=== PATIENT | female | born 1935 | race Caucasian/White ===

== ENCOUNTER → 2016-10-27 16:13 | Emergency (ER) | payer MEDICARE ==
--- NOTE | 2016-10-27 16:53 | RAD ---
INDICATION: Head injury. COMPARISON: There are no prior studies available for comparison. TECHNIQUE: Contiguous axial sections of the brain were obtained from the skull base to the vertex without contrast. FINDINGS: The ventricles, cisterns and sulci are within normal limits. 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 No other focal abnormalities or mass effect are seen. There is no evidence for hemorrhage. Soft tissue swelling is noted in the scalp posterior to the parietal and occipital bones. No fracture is seen. The visualized portion of the paranasal sinuses and mastoid air cells appear clear. IMPRESSION: 1. NO EVIDENCE FOR ACUTE INTRACRANIAL ABNORMALITY. 2. 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
--- NOTE | 2016-10-27 17:07 | ED ---
Head Injury - HPI Summary HPI Summary: Patient sat down in a chair outside and it tipped over backwards. She hit her head on the patio. She denies LOC, neck pain, vomiting, HERRERA, or amnesia. She is not a blood thinner. She has a "goose egg" on her head but does not think she cut her head. - History Of Current Complaint Chief Complaint: EDHeadInjury Stated Complaint: FALL Time Seen by Provider: 10/27/16 16:18 Hx Obtained From: Patient Mechanism Of Injury: Fall From Height Of: - 2 feet Onset/Duration: Started Minutes Ago, Traumatic Onset of Pain: Immediate Severity Currently: None Severity Initially: Mild Pain Intensity: 0 Location of Head Injury: Occipital Character: Dull Associated Signs And Symptoms: Swelling - mild, Bruising - Allergies/Home Medications Allergies/Adverse Reactions: Allergies Allergy/AdvReac Type Severity Reaction Status Date / Time Peanut-containing Drug Allergy Nausea Verified 10/27/16 16:31 Products Penicillins Allergy Itching Verified 10/27/16 16:31 Grape jam and jelly Allergy Nausea Uncoded 10/27/16 16:31 PMH/Surg Hx/FS Hx/Imm Hx Previously Healthy: Yes Infectious Disease History: No Infectious Disease History: Denies: Traveled Outside the [place] in Last 30 Days - Family History Known Family History: Positive: None - Social History Occupation: Retired Lives: With Family Alcohol Use: Rare Substance Use Type: Reports: None Smoking Status (MU): Never Smoked Tobacco Review of Systems Negative: Photophobia, Blurred Vision Positive: Bruising - with a mild bump to posterior scalp All Other Systems Reviewed And Are Negative: Yes Physical Exam Triage Information Reviewed: Yes Vital Signs On Initial Exam: Initial Vitals Temp Pulse Resp BP Pulse Ox 98.8 F 83 18 153/96 95 10/27/16 16:26 10/27/16 16:26 10/27/16 16:26 10/27/16 16:26 10/27/16 16:26 Vital Signs Reviewed: Yes Appearance: Positive: Well-Appearing, No Pain Distress, Well-Nourished Skin: Positive: Warm, Skin Color Reflects Adequate Perfusion, Dry, Soft Head/Face: Positive: Scalp - mild golf ball size hematoma with ecchymosis on posterior parietal scalp Eyes: Positive: EOMI, OBDULIO, Conjunctiva Clear ENT: Positive: Hearing grossly normal, Pharynx normal, TMs normal Neck: Positive: Supple, Nontender Respiratory/Lung Sounds: Positive: Clear to Auscultation, Breath Sounds Present Cardiovascular: Positive: RRR Musculoskeletal: Negative: Edema Left, Edema Right Neurological: Positive: Sensory/Motor Intact, Alert, Oriented to Person Place, Time, CN Intact II-III, NV Bundle Intact Distally, Normal Gait Psychiatric: Positive: Affect/Mood Appropriate AVPU Assessment: Alert Diagnostics - Vital Signs Vital Signs Temp Pulse Resp BP Pulse Ox 10/27/16 16:26 98.8 F 83 18 153/96 95 - Laboratory Lab Statement: Any lab studies that have been ordered have been reviewed, and results considered in the medical decision making process. - CT No standard instances CT Interpretation: No Acute Changes CT Interpretation Completed By: Radiologist Head Injury Course/Dx - Diagnoses Differential Diagnosis/HQI/PQRI: Cerebral Contusion, Cervical Sprain, Concussion With LOC, Contusion, Hematoma, Laceration, Skull Fracture Provider Diagnoses: Scalp contusion, Head injury Discharge - Discharge Plan Condition: Stable Disposition: HOME Patient Education Materials: Head Injury (ED) Referrals: Hussein Godwin MD [Primary Care Provider] - Additional Instructions: Please follow-up with your primary care provider in 2-3 days if your symptoms persist. Use Tylenol for pain. Return to the emergency department if symptoms worsen.
[2016-10-27 17:35] VITALS: BP 196/78
== END | disposition home or self-care (01) ==
LOC: ED 16:13
DX: S00.03XA Contusion of scalp, initial encounter (principal); S09.90XA Unspecified injury of head, initial encounter; R60.9 Edema, unspecified; W01.0XXA Fall on same level from slipping, tripping and stumbling without subsequent striking against object, initial encounter; Y93.9 Activity, unspecified; Y92.9 Unspecified place or not applicable
CPT/HCPCS: 70450; 99282

== ENCOUNTER 2017-02-06 10:40 | Day surgery (SDC) | payer MEDICARE ==
[~2017-02-06 10:40] MED LIST: Acetaminophen TAB* 325 MG PO PRN; Buffered Lidocaine 0.9% SYRIN* 5 ML/SYR SYRINGE INTRADERM ONE
[2017-02-06] MEDS ORDERED: fentaNYL* 50 MCG/ML 2 ML VIAL (100 MCG VIAL) ONE (11:35)
[2017-02-06] MEDS ORDERED: Midazolam* 1 MG/ML 2 ML VIAL (2 MG) ONE (11:35)
[2017-02-06 12:52] VITALS: BP 129/72
[2017-02-06] MEDS ORDERED: Phenylephrine 2.5% OPTH.SOL* 2 ML BTL ONE (13:22)
[2017-02-06] MEDS ORDERED: Tropicamide 1% OPTH.SOL* BTL ONE (13:22)
[2017-02-06] MEDS ORDERED: Tetracaine 0.5% OPTH.SOL 4 ML* 1 DROP BTL ONE (13:22)
[2017-02-06] MEDS ORDERED: Neomycin/Polymy/Dex OPHTH.OIN* 3.5 GM ONE (13:22)
[2017-02-06] MEDS ORDERED: Ketorolac 0.5% OPHTH (NF) 0.5 % 5 ML BTL ONE (13:22)
[2017-02-06] MEDS ORDERED: Flurbiprofen 0.03% OPTH.SOL* 2.5 ML BTL ONE (13:22)
[2017-02-06] MEDS ORDERED: Cyclopentolate 1% OPTH.SOL* 2 ML BTL ONE (13:22)
[2017-02-06] MEDS ORDERED: Buffered Lidocaine 0.9% SYRIN* 5 ML/SYR SYRINGE ONE (13:22)
[2017-02-06] MEDS ORDERED: Lidocaine 1% MPF* 2 ML VIAL ONE (13:22)
--- NOTE | 2017-02-07 04:07 | OP ---
DATE OF OPERATION: 02/06/17 [facility] DATE OF : 39 SURGEON: Dr. Hiro Keene. MANAGEMENT TRAINER: None. ANESTHESIOLOGIST: Krzysztof Mullen MD ANESTHESIA: Topical with intravenous sedation. PRE-OP DIAGNOSIS: Cataract, right eye. POST-OP DIAGNOSIS: Cataract, right eye. OPERATIVE PROCEDURE: Phacoemulsification and cataract extraction with posterior chamber intraocular lens implant, right eye. COMPLICATIONS: None. BLOOD LOSS: None. DESCRIPTION OF PROCEDURE: The patient was brought to the operating room and received a small amount of intra-venous sedation. A drop of Tetracaine was placed in her right eye. She was prepped and draped in the usual sterile fashion for ophthalmic surgery and attention was directed to the right eye where a speculum was placed. A paracentesis was created at the 11 o'clock position and 0.1 cc of 1 percent preservative-free Lidocaine was injected into the anterior chamber followed by DisCoVisc. The eye was digitally stabilized while a 2.75 mm keratome was used to create a triplanar clear corneal incision at the 9 o'clock position. A continuous curvilinear capsulorrhexis was created with a cystotome and Utrata forceps. BSS on a cannula was used to hydrodissect the lens from the capsule. Phacoemulsification was performed in a divide-and- conquer technique to create four fragments which were removed. Residual cortical material was removed with irrigation and aspiration. DisCoVisc was used to inflate the capsular bag and an AU00T0 18.0 diopter lens was folded and inserted into the capsular bag. DisCoVisc was removed using irrigation and aspiration. BSS on a cannula was used to hydrate the corneal stroma and seal the wound. At the end of the case the pupil was round and the lens was centered. The eye was of normal pressure and the wound was water tight. The speculum was removed and topical Maxitrol ointment was placed on the surface of the eye. The eye was closed, patched and shielded and the patient was sent to the recovery room in stable condition with post operative instructions and follow-up appointment given. [id number]/[facility] #: [id number] MTDD
== END 2017-02-06 12:50 | disposition home or self-care (01) ==
LOC: OREAST 10:40
PROVIDERS: ATTEND Ophthalmology
DX: H25.041 Posterior subcapsular polar age-related cataract, right eye (principal); H25.11 Age-related nuclear cataract, right eye; H25.23 Age-related cataract, morgagnian type, bilateral; I10 Essential (primary) hypertension; E78.5 Hyperlipidemia, unspecified; Z88.8 Allergy status to other drugs, medicaments and biological substances
CPT/HCPCS: A9270-GY; J2250; J3010; V2632

== ENCOUNTER 2017-02-13 08:44 | Day surgery (SDC) | payer MEDICARE ==
[~2017-02-13 08:44] MED LIST changes: +Phenylephr/Ketorolac 1%/0.3% OPH DROP BTL ONE
[2017-02-13] MEDS ORDERED: fentaNYL* 50 MCG/ML 2 ML VIAL (100 MCG VIAL) ONE (09:06)
[2017-02-13] MEDS ORDERED: Midazolam* 1 MG/ML 5 ML VIAL (5 MG) ONE (09:06)
[2017-02-13 10:50] VITALS: BP 143/85
[2017-02-13] MEDS ORDERED: Tropicamide 1% OPTH.SOL* BTL ONE (11:15)
[2017-02-13] MEDS ORDERED: Phenylephrine 2.5% OPTH.SOL* 2 ML BTL ONE (11:15)
[2017-02-13] MEDS ORDERED: Lidocaine 1% MPF* 2 ML VIAL ONE (11:15)
[2017-02-13] MEDS ORDERED: Neomycin/Polymy/Dex OPHTH.OIN* 3.5 GM ONE (11:15)
[2017-02-13] MEDS ORDERED: Buffered Lidocaine 0.9% SYRIN* 5 ML/SYR SYRINGE ONE (11:15)
[2017-02-13] MEDS ORDERED: Tetracaine 0.5% OPTH.SOL 4 ML* 1 DROP BTL ONE (11:15)
[2017-02-13] MEDS ORDERED: Flurbiprofen 0.03% OPTH.SOL* 2.5 ML BTL ONE (11:15)
[2017-02-13] MEDS ORDERED: Cyclopentolate 1% OPTH.SOL* 2 ML BTL ONE (11:15)
--- NOTE | 2017-02-14 00:21 | OP ---
OPERATIVE REPORT: DATE OF OPERATION: 02/13/17 DATE OF : 39 SURGEON: Dr. Hiro Keene. EMBEDDED FIRMWARE ENGINEER: None. ANESTHESIA: Topical with intravenous sedation. PRE-OP DIAGNOSIS: Cataract, left eye. POST-OP DIAGNOSIS: Cataract, left eye. OPERATIVE PROCEDURE: Phacoemulsification and cataract extraction with posterior chamber intraocular lens implant, left eye. COMPLICATIONS: None. BLOOD LOSS: None. DESCRIPTION OF PROCEDURE: The patient was brought to the operating room and received a small amount of intravenous sedation. A drop of Tetracaine was placed in her left eye. She was prepped and donato ped in the usual sterile fashion for ophthalmic surgery and attention was directed to the left eye w here a speculum was placed. A paracentesis was created at the 5 o'clock position and 0.1 cc of 1 pe rcent preservative-free Lidocaine was injected into the anterior chamber followed by DisCoVisc. The eye was digitally stabilized while a 2.75 mm keratome was used to create a triplanar clear corneal incision at the 3 o'clock position. A continuous curvilinear capsulorrhexis was created with a cyst otome and Utrata forceps. BSS on a cannula was used to hydrodissect the lens from the capsule. Phac oemulsification was performed in a [id number] technique to create four fragments which were removed. Residual cortical material was removed with irrigation and aspiration. DisCoVisc was used to inflate the capsular bag and AU00T0 21.2 diopter lens was folded and inserted into the capsular bag. DisCoVisc was removed using irrigation and aspiration. BSS on a cannula was used to hydrate t he corneal stroma and seal the wound. At the end of the case the pupil was round and the lens was c entered. The eye was of normal pressure and the wound was water tight. The speculum was removed an d topical Maxitrol ointment was placed on the surface of the eye. The eye was closed, patched and s hielded and the patient was sent to the recovery room in stable condition with post operative instru ctions and follow-up appointment given. [id number]/[facility] #: [id number]
== END 2017-02-13 11:00 | disposition home or self-care (01) ==
LOC: OREAST 08:44
PROVIDERS: ATTEND Ophthalmology
DX: H25.042 Posterior subcapsular polar age-related cataract, left eye (principal); I10 Essential (primary) hypertension
CPT/HCPCS: A9270-GY; C9447; J2250; J3010; V2632

== ENCOUNTER 2017-05-26 11:57 | Emergency (ER) | payer MEDICARE ==
[2017-05-26 12:05] VITALS: BP 161/73
--- NOTE | 2017-05-26 15:11 | ED ---
Skin Complaint - HPI Summary HPI Summary: 81 female presents to ED with complaints of left and right blisters on tips of fingers that began this morning. Patient states she fell onto the ground yesterday and kept slipping, and had a hard time getting up. She slipped and landed on her knees and then her hands were on the ground in the snow catching her self. Denies any pain or loss of ROM. Patient states her hands were in the snow for ~10 minutes. Patient states she has feeling in finger/tips and the blisters are mildly tender on palpation. Has full use of finger tips without much difficulty. No other complaints. No PMHx other than HTN. No drainage. Blisters, clear, water filled and ranging in size. Denies numbness/tingling. - History of Current Complaint Chief Complaint: EDExtremityUpper Time Seen by Provider: 05/26/17 13:14 Stated Complaint: CHECK HANDS/SWARTZ BITE Hx Obtained From: Patient Onset/Duration: Started Hours Ago, Still Present, Worse Since Skin Exposure Onset/Duration: Hours Ago Timing: Constant Onset Severity: Mild Current Severity: Moderate Pain Intensity: 5 Pain Scale Used: 0-10 Numeric Skin Location: Hand - fingers Character: Swelling - blisters Aggravating Symptom(s): Touch Alleviating Symptom(s): Nothing Associated Signs & Symptoms: Negative Related History: Possible Reaction to: Environmental Exposure - cold temperatures - Allergy/Home Medications Allergies/Adverse Reactions: Allergies Allergy/AdvReac Type Severity Reaction Status Date / Time Latex Allergy ITCHINESS Verified 02/13/17 09:14 Penicillins Allergy Itching Verified 02/13/17 09:14 Grape jam and jelly Allergy Nausea Uncoded 02/13/17 09:14 PMH/Surg Hx/FS Hx/Imm Hx Endocrine/Hematology History: Denies: Hx Diabetes Cardiovascular History: Reports: Hx Hypertension - ON MEDICATION FOR GI History: Reports: Hx Gastroesophageal Reflux Disease - HX OF -TUMS Sensory History: Reports: Hx Cataracts - BILATERAL, Hx Contacts or Glasses - GLASSES Denies: Hx Hearing Aid Opthamlomology History: Reports: Hx Cataracts - BILATERAL, Hx Contacts or Glasses - GLASSES - Surgical History Surgery Procedure, Year, and Place: 1975-HYSTERECTOMY Hx Anesthesia Reactions: No - Immunization History Immunizations Up to Date: Yes Infectious Disease History: No Infectious Disease History: Denies: Traveled Outside the [place] in Last 30 Days - Family History Known Family History: Positive: None - Social History Alcohol Use: Rare Substance Use Type: Reports: None Smoking Status (MU): Never Smoked Tobacco Review of Systems Constitutional: Negative Cardiovascular: Negative Respiratory: Negative Positive: Other - blisters/frostbite Neurological: Negative All Other Systems Reviewed And Are Negative: Yes Physical Exam Triage Information Reviewed: Yes Vital Signs On Initial Exam: Initial Vitals Temp Pulse Resp BP Pulse Ox 96.9 F 88 16 161/73 97 05/26/17 12:01 05/26/17 12:01 05/26/17 12:01 05/26/17 12:01 05/26/17 12:01 Vital Signs Reviewed: Yes Appearance: Positive: Well-Appearing, No Pain Distress, Well-Nourished Skin: Positive: Warm, Skin Color Reflects Adequate Perfusion, Dry, Other - clear fluid filled blisters on finger tips worse on left hand than right, varying in size, with biggest being size of almond, mildly tender to touch no drainage with erythema and edema surrounding. no advanced cyanosis or eschar noted. no numbness, sensation appears grossly intact. nail beds intact. Head/Face: Positive: Normal Head/Face Inspection Eyes: Positive: Conjunctiva Clear ENT: Positive: Hearing grossly normal Neck: Positive: Supple, Nontender Respiratory/Lung Sounds: Positive: Clear to Auscultation, Breath Sounds Present. Negative: Rales, Rhonchi, Wheezes Cardiovascular: Positive: Normal, RRR, Pulses are Symmetrical in both Upper and Lower Extremities. Negative: Murmur, Rub Abdomen Description: Positive: Nontender, Soft Musculoskeletal: Positive: Normal, Strength/ROM Intact, Pain @ - mild tenderness on palpation of blisters on finger tips. Negative: Limited @, Interruption @, Abnormal @, Edema Left Neurological: Positive: Normal, Sensory/Motor Intact, Alert, Oriented to Person Place, Time, CN Intact II-III, Reflexes Intact, NV Bundle Intact Distally, Normal Gait - Johnathon Coma Scale Best Eye Response: 4 - Spontaneous Best Motor Response: 6 - Obeys Commands Best Verbal Response: 5 - Oriented Coma Scale Total: 15 Diagnostics - Vital Signs Vital Signs Temp Pulse Resp BP Pulse Ox 05/26/17 12:01 96.9 F 88 16 161/73 97 - Laboratory Lab Statement: Any lab studies that have been ordered have been reviewed, and results considered in the medical decision making process. Course/Dx - Course Course Of Treatment: Dr Welsh also evaluated patient who agrees. Appears to be suffering from swartz bite, second degree. Tetanus is UTD. No open sores or drainage or black eschar. Will hold off on preventative treatment with anitbiotic and steroid. ibuprofen for inflammation, keep clean and dry. apply aloe vera and triple anitbitoic, may wrap if desired. recommended because of size keeping blisters intact. also referred to UTD which suggested keeping intact. If problematic, worsening or open and becomes complicated, seek medical attention promptly. Follow up with PCP for recheck in 3-5 days. No concern for other etiology at this time. Aware of worsening signs and symptoms. Rest of skin exam intact and normal without significant findings of other frostbite. Given supplies to bandage and cover. - Differential Diagnoses - Skin Complaint Differential Diagnoses: Cellulitis, Other - swartz bite second degree, blisters - Diagnoses Provider Diagnoses: Frostbite Discharge - Discharge Plan Condition: Stable Disposition: HOME Patient Education Materials: Frostbite (ED) Referrals: Hussein Godwin MD [Primary Care Provider] - Additional Instructions: Apply triple antibiotic ointment and aloe vera multiple times daily. you may cover if desired. Keep clean and dry. Take ibuprofen for inflammation for the next few days with food. Follow up with PCP in 2-3 days to ensure improvement. Any new or worsening symptoms such as increased, swelling, pain, blackened color or unable to move fingers please return to ED immediately and seek medical attention promptly. Recheck BP with PCP as it was slightly elevated today, although already medication and diagnosed with HTN.
[2017-05-26] MEDS ORDERED: Ibuprofen TAB* 400 MG PO ONE (15:13)
== END 2017-05-26 15:48 | disposition home or self-care (01) ==
LOC: ED 11:57
DX: T33.532A Superficial frostbite of left finger(s), initial encounter (principal); T33.531A Superficial frostbite of right finger(s), initial encounter; X31.XXXA Exposure to excessive natural cold, initial encounter; I10 Essential (primary) hypertension; Z88.0 Allergy status to penicillin
CPT/HCPCS: 99282

== ENCOUNTER 2024-03-08 17:47 | Observation (INO) ==
[2024-03-08 18:36] LABS: Hematocrit 45.6 % (35-45); Hemoglobin 15.1 g/dL (11.5-14.3); Mean Corpuscular Hemoglobin 27.3 pg (27-33); Mean Corpuscular Volume 82.8 fL (80-97); Mean Platelet Volume 8.1 fL (7.5-11.2); Platelet Count 321 10^3/uL (150-450); Red Blood Count 5.51 10^6/uL (3.63-4.92); Red Cell Distribution Width 15.5 % (12-17); White Blood Count 23.9 10^3/uL (3.8-11.8)
[2024-03-08 18:57] LABS: Albumin 4.1 g/dL (3.2-5.2); Albumin/Globulin Ratio 1.6 (1-3); Calcium 8.8 mg/dL (8.6-10.3); Creatinine, Serum 0.68 mg/dL (0.51-0.95); Globulin 2.6 g/dL (2-4); Magnesium 1.9 mg/dL (1.9-2.7); Total Bilirubin 0.8 mg/dL (0.2-1.0); Total Protein 6.7 g/dL (6.4-8.9); eGFR CKD-EPI 84.8 (>60)
[2024-03-08 19:04] LABS: ABS Basophils 0.1 10^3/uL (0.0-0.1); ABS Neutrophils 21.8 10^3/uL (1.5-7.6); ABS Nucleated RBC 0.01 10^3/ul
[2024-03-08] MEDS ORDERED: Iohexol 350 (CONTRAST) 500 ML MDV IV ONE (19:27)
[2024-03-08] MEDS: Lactated Ringers 1000 ml BAG 1,000 ML IV ONE ×2 (19:40→22:48)
[2024-03-08 20:07] LABS: Urine Appearance Clear; Urine Bilirubin Negative (Negative); Urine Blood 3+ (Negative); Urine Color Yellow; Urine Glucose Trace (Negative); Urine Ketones 2+ (Negative); Urine Nitrite Negative (Negative); Urine Protein 2+ (>=100 mg/dL) (Negative); Urine Specific Gravity 1.019 (1.002-1.030); Urine Urobilinogen Negative (Negative); Urine pH 6.5 (5.0-8.0)
[2024-03-08 20:17] LABS: Urine Bacteria Absent /HPF (Absent); Urine Red Blood Cell Trace(0-2/hpf) /HPF (0-Trace); Urine Squamous Epithelial Cell Present /HPF (Absent); Urine White Blood Cell Trace(0-5/hpf) /HPF (0-Trace)
[2024-03-08 20:31] LABS: High Sensitivity Troponin 1 Hr 216 pg/mL (<15)
[2024-03-09] MEDS: Enoxaparin 40 MG/0.4 ML SYR SUBCUT SCH (02:02)
[2024-03-09 02:04] LABS: Hematocrit 41.1 % (35-45); Hemoglobin 13.5 g/dL (11.5-14.3); Mean Corpuscular Hgb Conc 32.9 g/dL (31-36); Mean Corpuscular Volume 82.1 fL (80-97); Mean Platelet Volume 7.9 fL (7.5-11.2); Platelet Count 294 10^3/uL (150-450); Red Cell Distribution Width 15.4 % (12-17); White Blood Count 20.4 10^3/uL (3.8-11.8)
[2024-03-09] MEDS: Lidocaine PATCH 5% PATCH TRANSDERM SCH (02:05)
[2024-03-09 02:37] LABS: TSH Ultra Thyroid Stim Horm 2.13 mcIU/mL (0.34-5.60)
[2024-03-09] MEDS: Nystatin TOP POWDER 15 GM BTL TOPICAL PRN (03:32)
[2024-03-09 07:57] LABS: HDL Cholesterol 48.3 mg/dL
[2024-03-09 08:30] LABS: Albumin 3.4 g/dL (3.2-5.2); Albumin/Globulin Ratio 1.7 (1-3); Calcium 8.5 mg/dL (8.6-10.3); Creatinine, Serum 0.71 mg/dL (0.51-0.95); Total Bilirubin 0.6 mg/dL (0.2-1.0); Total Protein 5.4 g/dL (6.4-8.9); eGFR CKD-EPI 82.8 (>60)
[2024-03-09 08:48] LABS: ABS Lymphocytes 1.6 10^3/uL (1.0-4.8); ABS Monocytes 1.2 10^3/uL (0.0-0.9); ABS Neutrophils 14.6 10^3/uL (1.5-7.6); ABS Nucleated RBC 0.01 10^3/ul; Eosinophil % 0.1 %; Hematocrit 40.5 % (35-45); Hemoglobin 13.1 g/dL (11.5-14.3); Lymphocyte % 9.3 %; Mean Corpuscular Hemoglobin 26.8 pg (27-33); Mean Corpuscular Hgb Conc 32.4 g/dL (31-36); Mean Corpuscular Volume 82.7 fL (80-97); Mean Platelet Volume 8.4 fL (7.5-11.2); Nucleated Red Blood Cells % 0.1 %/100WBC (0.0-0.8); Platelet Count 302 10^3/uL (150-450); Red Cell Distribution Width 15.5 % (12-17); White Blood Count 17.5 10^3/uL (3.8-11.8)
[2024-03-09 09:28] LABS: High Sensitivity Troponin 1 Hr 170 pg/mL (<15)
[2024-03-09] MEDS: Calcium Carb (TUMS) 500 mg CHEW TAB PO SCH (10:15)
[2024-03-09] MEDS: Simvastatin 20 mg TAB (NF) PO SCH (20:47)
[2024-03-10 06:27] LABS: ABS Basophils 0.1 10^3/uL (0.0-0.1); ABS Eosinophils 0.1 10^3/uL (0.0-0.5); ABS Lymphocytes 2.8 10^3/uL (1.0-4.8); ABS Monocytes 1.1 10^3/uL (0.0-0.9); ABS Neutrophils 7.6 10^3/uL (1.5-7.6); Eosinophil % 0.9 %; Hematocrit 39.8 % (35-45); Hemoglobin 12.8 g/dL (11.5-14.3); Mean Corpuscular Hemoglobin 26.7 pg (27-33); Mean Corpuscular Hgb Conc 32.2 g/dL (31-36); Mean Corpuscular Volume 83.1 fL (80-97); Mean Platelet Volume 7.9 fL (7.5-11.2); Platelet Count 262 10^3/uL (150-450); Red Cell Distribution Width 15.4 % (12-17); White Blood Count 11.6 10^3/uL (3.8-11.8)
[2024-03-10 07:15] LABS: Calcium 8.3 mg/dL (8.6-10.3); Creatinine, Serum 0.73 mg/dL (0.51-0.95); Potassium 3.9 mmol/L (3.5-5.0)
[2024-03-10] MEDS ORDERED: Sulfur Hexaflouride MICROSPHR 25 MG VIAL ONE (11:29)
[2024-03-10] MEDS: Sulfur Hexaflouride MICROSPHR 25 MG VIAL IV PRN (11:44)
[2024-03-10 16:34] VITALS: BP 151/114
== END 2024-03-10 18:38 | disposition home or self-care (01) ==
LOC: EDHOLD 17:47 → ED 17:47 → SUATTDRO 23:12 → MEDTELE 03-09 00:12
PROVIDERS: ADMIT Internal Medicine; ATTEND Internal Medicine